=== PATIENT | female | born 1970 | race Caucasian/White ===

== ENCOUNTER 2022-01-10 00:09 | Day surgery (SDC) | payer OTHER, SELFPAY ==
[2021-12-31 14:22] VITALS: BMI 24.5
--- NOTE | 2021-12-31 14:25 | PC.NURSE ---
Report to the Outpatient Waiting Room, entrance under the green pavilion located off [facility], at time _0700_ on date _01/10/22_. OR Time: _0900 . - You and your visitor will be asked a series of questions to screen for COVID 19 for your protection. - A mask is required within the hospital. Preoperative COVID Testing Requirements: No COVID Test needed if: (proof is required; if not received patient will have Rapid Test prior to entry) - Patient has received COVID Vaccine at least 14 days prior to procedure date or - Patient has positive COVID test result within last 90 days of surgery date. COVID Test needed if above criteria is not met If not COVID vaccinated a COVID test must be conducted within 72 hours of surgery and patient is asked to isolate self from time of testing until procedure. You will go to the [facility] for your COVID testing. The [facility] Testing site is located at the corner of [address] [facility]. You will only be called if COVID results are positive and your surgeon may reschedule your elective surgery date. Patients may have clear liquids (water, carbonated beverages, clear teas, apple juice) until 3 hours prior to surgery with a maximum of 20 ounces. - No food from midnight until time of surgery - Infants may have breast milk until 4 hours before surgery, infant formula 6 hours prior to surgery. - Children will be allowed to drink immediately following surgery. If applicable, please bring a bottle or sippy cup to assist with drinking. Juice, water, soda, and popsicles are readily available. For infants on formula, please bring formula the day of surgery. Pacifiers are allowed. Take the following medications with a SIP of water the morning of surgery: Medications to discontinue per physician ___MULTIVITAMINS 3 DAYS PRIOR ____ Date to take last dose Please no make-up, nail nigerian, hairspray, perfume, deodorant, or body powder the day of surgery. No jewelry (including any body piercings) or valuables the day of surgery, leave them at home. Please take a shower or bath the night before, or the morning of, surgery with an antibacterial soap. Wear comfortable, loose fitting clothing. Children are encouraged to wear pajamas. - Jewelry must be removed prior to entering the operating room. Rings and piercings that are not removed may be cut off. - The hospital will not accept responsibility for valuables. - Please leave all valuables, including medications, at home the day of surgery. If you are going home after surgery, a licensed helper/driver must drive you home. - NO public transportation without another adult. - We recommend that an adult stay with you for 24 hours following discharge. - We also recommend that you do not drive, make important decision, drink alcoholic beverages, or take any drugs that were not prescribed by your health care provider for at least 24 hours after your discharge time. For Pediatric surgeries, we recommend two adults accompany the child home (only one inside the building at this time). One visitor will be allowed to accompany the patient into the hospital. Patients visitor will be instructed to remain with patient at all times or leave the building. We will allow the visitor to come back to the postoperative area when patient is ready. Follow any additional instructions given to you from your surgeon. Telephone instructions given to __PATIENT__and asked if any additional questions and then verbalized understanding. Patient advised to call surgeon office or pre surgery nurse liaison [phone] if any additional questions.
[2022-01-10] VITALS (8 sets, daily range): BP systolic 104–117; BP diastolic 50–68; PULSE 63–85; RESP 12–20; TEMP 36.2–36.6; O2SAT 100; BMI 24.0
--- NOTE | 2022-01-10 06:39 | P.OP_ITS ---
Procedure Note - Detailed Date of Procedure 01/10/22 Pre-op Diagnosis unacceptable cosmetic appearance Post-op Diagnosis Same Procedure Performed [place] butt lift (suction lipectomy / fat grafting) Surgeon Sherif Tinoco MD Anesthesia General Findings Lipoaspirate 2200 cc Abdomen Flank Lower back Infragluteal (banana roll) Fat grafting volume Right lateral thigh: 80cc Right gluteal: 420cc Left lateral thigh: 80cc Left gluteal: 420cc Description of Procedure Preoperatively the risks, benefits, alternatives were discussed in extensive detail. I want her be very realistic about the risks involved as well as expectations. We had a lengthy open-ended conversation regarding risk of . She understands the literature rate of this. She understands the techniques that we employee. Again this was outlined extensively due to the great nature of this risk, I wanted her to be very well informed about this. With regards to oa outcomes we also discussed realistic expectations of outcome. What we could and could not accomplish. She has previous liposuction which we will attempt to improve however high have no improvement and may actually worsen her appearance. I was very up front honest about this. Discussed aftercare. Answered all of her questions to her satisfaction. Consent was obtained. She was marked in the preoperative holding area with her verification. We spent extensive time discussing her goals. She was taken to the operating room. Placed supine on the operating room table. Anesthesia provided by anesthesiology. She was prepped and draped in a circumferential prep. Surgical time-out was taken. Stab incisions were made and I tumesced with a tumescent solution. Once adequate time for hemostasis and pain control a 5 mm basket cannula based on safe technique was utilized multiple planes and passes based on preoperative planning as well as observations in rolling pinch test. this was collected in a gravity separation device. During this procedure we did place her on bilateral lateral decubitus position in order to optimize contour. Care was taken to protect her during these transition as well as while in these positions. The central adipose portion was used during injection and I injected using the 5 mm basket cannula. The patient was placed prone. We completed the suction lipectomy. I then injected the adipose tissue using the 5 mm basket cannula staying well superficial to gluteal fascia. Port sites were closed with 4-0 nylon as we proceeded. Dressings and garment were placed. Patient was awoke and taken the PACU without difficulty. All instrument sponge counts were correct at the end the case. We made all attempts to prevent pressure on the fat grafted sites. Estimated Blood Loss 20 Drains No Packing No Pathology None sent Complications No immediate complications Condition Stable Disposition PACU
[2022-01-10 07:38] LABS: Urine Cotinine NEGATIVE
--- NOTE | 2022-01-10 08:06 | SUR.PREOP ---
PT STATES SHE TOOK A CAFFIENE PILL AT 0300 TO PREVENT MIGRAINE
--- NOTE | 2022-01-10 08:16 | WPDANESEPPF ---
Anes - Initial Pre Proc Eval Procedure: Operation Date: 01/10/22 09:00 Proposed Procedures p Abdominal Liposuction - Sherif Tinoco MD s Thigh Liposuction - Sherif Tinoco MD s With Fat Transfer to Buttocks - Sherif Tinoco MD Date/Time: 01/10/22 08:16 Surgeon: Sherif Tinoco MD Pre Op Diagnosis: unacceptable cosmetic appearance Patient Data Age: 51 Gender: F Height: 1.55 m Weight: 57.7 kg Last Vital Signs Temp 36.6 C 01/10/22 08:00 Pulse 63 01/10/22 08:00 Resp 16 01/10/22 08:00 BP 115/68 01/10/22 08:00 Pulse Ox 100 01/10/22 08:00 Allergies Allergy/AdvReac Type Severity Reaction Status Date / Time No Known Allergies Allergy Verified 01/10/22 07:47 Home Medications Medication Instructions Recorded Confirmed Type multivitamin 1 tablet PO DAILY 08/15/21 12/31/21 History tizanidine 4 mg capsule 4 mg PO QHS PRN 08/15/21 12/31/21 History topiramate 100 mg tablet 100 mg PO DAILY 08/15/21 12/31/21 History valacyclovir 500 mg tablet 500 mg PO DAILY 08/15/21 12/31/21 History docusate sodium 100 mg capsule 100 mg PO DAILY #14 cap 12/25/21 Rx oxycodone-acetaminophen 5 mg-325 1 tablet PO Q6H PRN #30 tablet 12/25/21 12/25/21 Rx mg tablet caffeine 100 mg PO DAILY PRN 01/10/22 01/10/22 History Laboratory Tests 01/10/22 07:17 Cotinine Negative Patient hx anesthesia problems: none Family hx anesthesia problems: none Results Review: All pre-operative results and documents have been reviewed as part of the pre-operative evaluation. [facility] Past Medical History Medical History History of Chiari malformation Surgical History Surgical History Hx of breast augmentation Hx of cholecystectomy Hx of hysterectomy Family History Family History Mother Hypertension Father Cancer Social History Social History Years smoked: 10 Smoking status: Former smoker Tobacco type: cigarettes Additional smoking assessment comments: pt stated she only smoked a cigarette here and there when she was drinking. Alcohol intake: current Alcohol use details: socially- made 2 drinks a month Substance use: never Substance use type: does not use Living arrangements: alone Spiritual care concerns: No Anes - Eval Final PreProcedure Day of Procedure 01/10/22 08:16 Patient weight: normal Heart: regular rate and rhythm Lungs: clear to auscultation Airway: Mallampati scale class 1 Neurological: alert and oriented Last oral intake: >/= 8 hours ASA classification: II Emergent: no Anesthetic plan: proceed Anesthesia type and monitoring: general ETT and standard monitoring Results Review: All pre-operative results and documents have been reviewed as part of the pre-operative evaluation. Informed Consent: The patient's anesthetic plan and its attendant risks and benefits were discussed with the patient/family/POA. Questions were solicited and answers provided to the satisfaction of the patient/family/POA.
[2022-01-10] MEDS: LACTATED RINGERS 1,000 ML 30 ML IV CONT ×2 (08:22→12:40)
--- NOTE | 2022-01-10 08:22 | SUR.PREOP ---
500ML IVF BOLUS INFUSING PER ORDER
--- NOTE | 2022-01-10 09:09 | WPDHPUPDATE1 ---
History and Physical Update Update Date/Time: 01/10/22 09:09 History and Physical has been reviewed, including an updated exam of the patient. There are NO changes in the patient's condition. Risks, benefits, and alternatives have been discussed and questions answered. Patient agrees to proceed with procedure.
--- NOTE | 2022-01-10 09:29 | SUR.PREOP ---
0938; FEMALE STAFF MEMBER IN ROOM WITH DR URIBE DURING MARKING. DAUGHTER AT BEDSIDE ALSO
[2022-01-10] MEDS: ceFAZolin 2 GM/D5W 50 ML 2 GM/50 ML BAG IVPB (09:35)
[2022-01-10] MEDS: TRANEXAMIC ACID 1,000MG/ISO100 1,000 MG/100 ML BAG 200 MG IVPB (09:45)
[2022-01-10] MEDS: LACTATED RINGERS IRRIG 1,000 ML, LIDOCAINE HCL 1% LOCAL INJ 50 ML, EPINEPHrine HCL INJ ... INFILTRATE (12:13)
[2022-01-10] MEDS: fentaNYL CITRATE INJ (*CRX) 100 MCG/2 ML VIAL 25 MCG IV PUSH ×4 (12:51→13:17)
[2022-01-10] MEDS: oxyCODONE HCL (*CRX) 5 MG TAB IR PO (13:37)
== END 2022-01-10 14:20 | disposition home or self-care (01) ==
PROVIDERS: Visit Provider Surgery Plastic and Reconstructive Surgery
PROC: (CPT 15877; principal; 2022-01-10 09:00)
PROC: (CPT 15877; 2022-01-10 09:00)
PROC: (CPT 15769; 2022-01-10 09:00)
DX: Z41.1 Encounter for cosmetic surgery (principal)
CPT/HCPCS: 15771; 15772 ×19; 80307; A9270; J0171; J0330; J0690; J1100; J2250; J2370; J2405; J2704; J3010; J7120